=== PATIENT | male | born 1940 | race Caucasian/White ===

== ENCOUNTER 2019-05-12 10:12 | Day surgery (SDC) | payer MEDICARE, OTHER ==
[~2019-05-12] VITALS: Ht 180.3 cm; Wt 135.5 kg
[~2019-05-12 10:12] MED LIST: Aspirin EC81 MG PO; Diovan Hct 1601 EACH PO; GABA300 PO; HYDR1TAB94 PO; Inderal80 MG PO; OXAP600 PO; PANT40 PO
[2019-05-12] MEDS ORDERED: MELO7.5 (10:57)
--- NOTE | 2019-05-12 14:18 | NUR ---
05/12/19 1418 Sharon Ac PATIENT AGGITATED , C/0 HEADACHE, BACK PAIN , STRUGGLING TO GET OUT OF BED, THREATING TO NURY US IF HE CANT GET UP NOW. MED C FENTANYL 50 MCG IV, WITH SLIGHT REDUCTION IN AGGITATION, REMAINS AWAKE AND YELLING
--- NOTE | 2019-05-12 14:28 | NUR ---
05/12/19 1428 Sharon Ac PATIENT C.O SEVERE HEADACHE, AGGITATED, YELLING MED WITH 2ND DOSE FENTANYL 50 MCG IV.
== END 2019-05-12 15:37 | disposition home or self-care (01) ==
LOC: ORSCSDS 10:12
PROVIDERS: Otolaryngology
PROC: 09BV8ZZ Excision of Left Ethmoid Sinus, Via Natural or Artificial Opening Endoscopic (ICD-10-PCS; principal; 2019-05-12 11:45)
PROC: 8E09XBZ Computer Assisted Procedure of Head and Neck Region (ICD-10-PCS; principal; 2019-05-12 11:45)
DX: J32.8 Other chronic sinusitis (principal); J33.0 Polyp of nasal cavity; I10 Essential (primary) hypertension; G47.33 Obstructive sleep apnea (adult) (pediatric); K21.9 Gastro-esophageal reflux disease without esophagitis; E66.01 Morbid (severe) obesity due to excess calories; Z68.41 Body mass index [BMI] 40.0-44.9, adult; Z79.899 Other long term (current) drug therapy; Z79.82 Long term (current) use of aspirin
CPT/HCPCS: A9270-GY; C2625; J1100; J2250; J2405; J2704; J3010; J7120